=== PATIENT | male | born 1945 | race Caucasian/White ===

== ENCOUNTER → 2023-12-17 08:47 | Outpatient (REF) | payer OTHER, SELFPAY | LOC: HWRCS 08:47 | PROVIDERS: ATTENDING PHYSICIAN Nuclear Medicine Nuclear Cardiology; FAMILY PHYSICIAN Internal Medicine | DX: I10 Essential (primary) hypertension (principal); I25.10 Atherosclerotic heart disease of native coronary artery without angina pectoris; I34.2 Nonrheumatic mitral (valve) stenosis | CPT/HCPCS: 93306 ==

== ENCOUNTER → 2024-12-29 12:35 | Outpatient (REF) | payer OTHER, SELFPAY | LOC: HWRCS 12:35 | PROVIDERS: ATTENDING PHYSICIAN Nuclear Medicine Nuclear Cardiology; FAMILY PHYSICIAN Internal Medicine | DX: R00.0 Tachycardia, unspecified (principal); I25.10 Atherosclerotic heart disease of native coronary artery without angina pectoris; I34.2 Nonrheumatic mitral (valve) stenosis | CPT/HCPCS: 93306 ==